=== PATIENT | male | born 1940 | race Two or more races ===

== ENCOUNTER 2020-01-28 19:26 | Emergency (ER) | payer MEDICARE, OTHER ==
[~2020-01-28] VITALS: Ht 177.8 cm; Wt 77.1 kg
[2020-01-28] MEDS ORDERED: MORPHINE SULFATE INJ 4 MG/ML DISP.SYRIN ONE (19:44)
[2020-01-28] MEDS ORDERED: ONDANSETRON HCL/PF 4 MG/2 ML VIAL ONE (19:44)
[2020-01-28] MEDS ORDERED: MORPHINE SULFATE INJ 2 MG/ML DISP.SYRIN IV ONE (20:00)
[2020-01-28] MEDS ORDERED: ONDANSETRON HCL/PF 4 MG/2 ML VIAL IV ONE (20:00)
[2020-01-28] MEDS ORDERED: IV NS 0.9% 1,000 ML BAG IV ONE (20:00)
--- NOTE | 2020-01-28 20:11 | NUR ---
CONSENT OBTAINED FROM PT FOR RIGHT SHOULDER REDUCTION W/ MODERATE SEDATION.
[2020-01-28] MEDS ORDERED: PROPOFOL 20 ML IV ONE (20:18)
[2020-01-28] MEDS ORDERED: PROPOFOL 1,000 MG/100 ML BOTTLE IV ONE (20:30)
--- NOTE | 2020-01-28 20:50 | NUR ---
DR DAVIS PAGED PER DR NULL
--- NOTE | 2020-01-28 20:54 | NUR ---
RT rt called for moderate sedation standby @2019. pre procedure pt saturation was 98%. rt placed pt on 6l sm. throughout procedure pt saturation was 98-100%. post procedure pt saturation was 97-98%. procedure was about 30 min.
[2020-01-28 20:59] LABS: BASOPHILS # (AUTO) 0.1 /CMM (0.0-0.2); BASOPHILS % (AUTO) 0.8 % (0.0-2.0); EOSINOPHILS % (AUTO) 1.2 % (0.0-6.0); HEMATOCRIT 42 % (39-51); HEMOGLOBIN 14.1 g/dL (13.5-17.5); LYMPHOCYTES # (AUTO) 1.4 /CMM (0.8-4.8); LYMPHOCYTES % (AUTO) 13.9 % (20.0-44.0); MEAN CORPUSCULAR HGB CONC 34 g/dl (31.0-36.0); MEAN CORPUSCULAR VOLUME 91 fL (80-96); MONOCYTES # (AUTO) 0.5 /CMM (0.1-1.30); MONOCYTES % (AUTO) 4.9 % (2.0-12.0); NEUTROPHILS # (AUTO) 8.1 /CMM (1.8-8.9); NEUTROPHILS % (AUTO) 79.2 % (43.0-81.0); PLATELET COUNT (AUTO) 251 /CMM (150-450); RED BLOOD CELL COUNT(AUTO) 4.65 MIL/uL (4.5-6.0); WHITE BLOOD COUNT (AUTO) 10.2 K/uL (4.3-11.0)
[2020-01-28] MEDS ORDERED: HYDROMORPHONE 1 MG/1 ML DISP.SYRIN IV ONE (21:00)
[2020-01-28] MEDS ORDERED: HYDROMORPHONE 1 MG/1 ML DISP.SYRIN ONE (21:01)
[2020-01-28 21:13] LABS: CALCIUM, SERUM 8.4 mg/dL (8.5-10.1); CREATININE 0.9 mg/dL (0.6-1.3); POTASSIUM 4.1 mmol/L (3.5-5.1)
[2020-01-28 21:18] LABS: ALBUMIN 3.7 g/dL (3.4-5.0); BILIRUBIN,TOTAL 0.3 mg/dL (0.2-1.0); TOTAL PROTEIN, SERUM 6.7 g/dL (6.4-8.2)
[2020-01-28] MEDS ORDERED: PROPOFOL 200 MG/20 ML VIAL IV ONE (21:30)
--- NOTE | 2020-01-28 22:16 | NUR ---
Patient does not wish to proceed with medical care recommended by Eve Mcclain. Patient given information related to possible complications, up to and including , which could occur as a result of leaving the hospital at this time. Patient verbalizes understanding of risks involved due to leaving against medical advice. Patient has signed AMA form.
[2020-01-28 22:17] VITALS: BP 159/96
== END 2020-01-28 22:18 | disposition left against medical advice (07) ==
LOC: ER 19:26
DX: M24.411 Recurrent dislocation, right shoulder (principal); I10 Essential (primary) hypertension; E78.5 Hyperlipidemia, unspecified; W18.39XA Other fall on same level, initial encounter; Y93.89 Activity, other specified; Y92.89 Other specified places as the place of occurrence of the external cause; Y99.8 Other external cause status
CPT/HCPCS: 23650; 36415; 73030 ×2; 80053; 85025; 96374; 96375; 99152; 99285; J1170; J2270; J2405; J2704; J7030; 87081-TC; G0500